=== PATIENT | male | born 1995 | race Caucasian/White ===

== ENCOUNTER 2021-12-08 22:05 | Emergency (ER) | payer OTHER ==
[~2021-12-08] VITALS: Ht 172.7 cm; Wt 70.9 kg
[~2021-12-08 22:05] MED LIST: AMPH25CA PO; [UNRECOGNIZED DRUG - CODE] PO
[2021-12-08 22:14] VITALS: BP 143/79
== END 2021-12-08 23:21 | disposition left against medical advice (07) ==
LOC: EMS 22:06
DX: Z53.21 Procedure and treatment not carried out due to patient leaving prior to being seen by health care provider (principal)